=== PATIENT | female | born 1965 | race Caucasian/White ===

== ENCOUNTER → 2016-02-26 | Outpatient (CLI) | payer BC ==
[~2016-02-26] MED LIST: BCPILLS PO
== END | disposition home or self-care (01) ==
LOC: C.PAPS 11:43
PROVIDERS: ATTEND Obstetrics & Gynecology
DX: Z01.419 Encounter for gynecological examination (general) (routine) without abnormal findings (principal)

== ENCOUNTER → 2016-07-31 | Outpatient (CLI) | payer BC ==
--- NOTE | 2016-07-31 13:27 | MAMMOGRAPHY REPORT ---
BILATERAL DIGITAL SCREENING MAMMOGRAM TOMOSYNTHESIS WITH CAD: 07/31/2016 CLINICAL HISTORY: Routine screening. TECHNIQUE: Breast tomosynthesis in addition to standard 2D mammography was performed. Current study was also evaluated with a Computer Aided Detection (CAD) system. COMPARISON: Comparison is made to exams dated: 05/01/2015 mammogram, 04/23/2015 mammogram, 12/19/2013 ma mmogram, 09/16/2011 mammogram, 09/05/2010 mammogram, and 07/26/2009 mammogram - [facility]. BREAST COMPOSITION: The tissue of both breasts is extremely dense, which lowers the sensitivity of m ammography. FINDINGS: No suspicious masses, calcifications, or areas of architectural distortion are noted in ei ther breast. There has been no significant interval change compared to prior exams. IMPRESSION: ACR BI-RADS CATEGORY 1: NEGATIVE There is no mammographic evidence of malignancy. A 1 year screening mammogram is recommended. The pa tient will receive written notification of the results. Approximately 10% of breast cancers are not detected with mammography. A negative mammographic report should not delay biopsy if a clinically suggestive mass is present. Alessandra Hooper M.D. ah/:07/31/2016 11:15:42 President & Ceo: Angelina ERICKSON(R)(M), [facility] letter sent: Normal 1/2 BI-RADS Code: ACR BI-RADS Category 1: Negative
== END | disposition home or self-care (01) ==
LOC: C.MAMM 09:52
PROVIDERS: ATTEND Obstetrics & Gynecology
DX: Z12.31 Encounter for screening mammogram for malignant neoplasm of breast (principal)

== ENCOUNTER → 2017-05-18 | Outpatient (CLI) | payer BC ==
--- NOTE | 2017-05-18 09:47 | DIAGNOSTIC IMAGING REPORT ---
ULTRASOUND OF THE ABDOMINAL WALL CLINICAL HISTORY: Periumbilical abdominal pain. COMPARISON STUDY: No priors. FINDINGS: Real-time, grayscale, and color flow sonography of the supraumbilical abdominal wall is performed at the indicated site of interest. There is a nonreducible fat-containing umbilical hernia. No bowel or fluid was seen within the hernia sac. The orifice of the hernia measures up to 1.7 cm. IMPRESSION: There is a small nonreducible fat-containing supraumbilical hernia. Electronically signed by: Dean Jackson M.D. 05/18/2017 9:46 AM Dictated Date/Time: 05/18/2017 9:45 AM
== END | disposition home or self-care (01) ==
LOC: C.ULTR 09:08
PROVIDERS: ATTEND Family Medicine
DX: R10.9 Unspecified abdominal pain (principal); R22.2 Localized swelling, mass and lump, trunk